=== PATIENT | female | born 1990 | race Two or more races ===

== ENCOUNTER 2025-08-03 11:14 | Emergency (ER) | payer BC, SELFPAY ==
[2025-08-03 11:38] VITALS: BP 151/107; PULSE 95; RESP 18; TEMP 36.6; O2SAT 97; BMI 40.0
--- NOTE | 2025-08-03 12:08 | EDNOTE_ITS ---
ED OB Contraction Preg RMI/HPI General Chief complaint: Vaginal Bleeding Stated complaint: VAGINAL BLEEDING, CRAMPING, PREG 10WKS Time Seen by Provider: 08/03/25 11:54 Arrival date/time: 08/03/25 11:14 RME / HPI RME / HPI Narrative: DR. SNOW MAIN ED EVALUATION: 35-year-old female, approximately 10 weeks (, both prior sections), presenting with vaginal spotting since yesterday without passage of clots. She reports mild dysuria since yesterday and this morning but denies fever, chills, abdominal pain, cramping, or back pain. No recent trauma reported. Last menstrual period was approximately June 06. , both prior sections. States the first baby?s neck was wrapped around with the umbilical cord and for the second baby she had no choice. Related Data Home Medications ?Medication ?Instructions ?Recorded ?Confirmed [id number]-jmw-It-FA 1 mg 1 tab PO QDAY 1 11/14/22 tablet Previous Rx's ?Medication ?Instructions ?Recorded nifedipine 30 mg tablet,extended 30 mg PO QDAY 30 days #30 tabs 10/13/22 release cephalexin 500 mg capsule 500 mg PO QID 5 days #20 cap s 08/03/25 Allergies Allergy/AdvReac Type Severity Reaction Status Date / Time latex Allergy Mild Redness of Verified 08/03/25 11:17 Skin Penicillins Allergy Mild Rash Verified 08/03/25 11:17 Review of Systems Review of Systems Systems Reviewed: All systems reviewed, normal except as documented Past Medical History Past Medical History CARDIAC: Positive Cardiac Disorders and Hypertension (GESTATIONAL) GENITOURINARY: Positive Genitourinary Disorders (HISTORY OF UTI'S) REPRODUCTIVE: Positive Previous Pregnancies (X1) OTHER HISTORY: Positive Hospitalization (CHILDBIRTH) and Chicken Pox ( A CHILD) Family History FAMILY HISTORY: Positive Family Respiratory Disorders (GRANDMOTHER-ASTHMA), Family Cancer (MOTHER-MULTIPLE MYLOMA) and Family Surgery (MOTHER AND GRANDMOTHER-HYSTERECTOMY) Surgical History SURGICAL: Positive Section (2020) Social History SMOKING STATUS: Never smoker SECOND HAND EXPOSURE: No SUBSTANCE USE: does not use ALCOHOL: Never ED Exam Narrative Physical exam: Constitutional: Awake, alert, nontoxic, no acute distress, overweight HEENT: Normocephalic, atraumatic, extraocular movements intact. Neck: Supple CV: Regular rate and rhythm, no murmurs/rubs/gallops Lungs: Clear to auscultation BL, no respiratory distress. Abd: Soft, NT, ND, no HSM noted to palpation Extremities: No deformities, no edema noted Skin: Warm, dry, intact Course Quality Measures none Orders Category Date Time Status US OB <= 14 weeks fetus Stat Exams 08/03/25 13:18 Completed ABO/RH Type Stat Lab 08/03/25 15:00 Completed BMP [Basic Metabolic Panel] Stat Lab 08/03/25 14:45 Completed Beta HCG,Quantitative Stat Lab 08/03/25 14:45 Completed CBC Stat Lab 08/03/25 14:54 Completed Urinalysis, C/S if Indicated Stat Lab 08/03/25 12:18 Completed Urine Culture Stat Lab 08/03/25 12:18 Received cephALEXin [Keflex] Med 08/03/25 15:51 Discontinued 500 mg PO X1 ONE Vital Signs Vital signs: Vital Signs Temperature 97.8 F 08/03/25 11:38 Pulse Rate 95 08/03/25 11:38 Respiratory Rate 18 08/03/25 11:38 Blood Pressure 151/107 H 08/03/25 11:38 Pulse Oximetry (%) 97 08/03/25 11:38 Oxygen Delivery Method Room Air 08/03/25 11:38 Vaginal Bleeding MDM Narrative MDM Narrative: I, Rabia Vazquez, am scribing for and in the presence of Dr. Snow. 1230: Nurse reported patient had an episode of blood with clots while using the restroom, not just spotting now. 1550: Patient has an intrauterine . She also has a UTI and a subchorionic hemorrhage. Will need to see OBGYN closely for repeat labs and ultrasound. Okay for discharge home. Return precautions advised. Patient data External records reviewed:: [facility] previous records Clinical information provided by:: patient Social determinants that could affect healthcare access:: none Patient has the following chronic illnesses:: Approximately 10 weeks (, both prior sections). No other PMHx reported. How is presenting disease/condition affected by chronic disease/condition?: no chronic disease Evaluation data The following diagnostics were reviewed and interpreted by me:: lab results and radiology exam(s) Lab and/or radiology exams considered but not ordered:: none Interpretation Summary: See MDM narrative above. RADIOLOGY Procedure(s): US OB <= 14 weeks fetus Accession Number(s): [id number] cc: Milad Vivas; Aiden Huggins MD; Leslie Snow MD~ Examination: Complete OB ultrasound, less than 14 weeks, transabdominal Date and time of exam: August 03, 2025, 1520 hours INDICATIONS: Severe vaginal bleeding with clots today Technique: Obstetrical ultrasound images less than 14 weeks performed via transabdominal imaging Findings: A normal shaped single intrauterine gestation is present in the uterus. CRL 1.9 cm corresponds to 8 weeks 3 days gestational age Subchorionic hemorrhage 25 x 22 x 25 mm Cardiac motion 166 bpm Ultrasonographic survey of visible structures unremarkable. Amniotic fluid volume appears appropriate for this estimated gestational age. Right ovary 3.5 cm arterial flow Left ovary obscured by bowel gas IMPRESSION: Viable intrauterine gestation 8 weeks 3 days Recommend short-term follow-up transvaginal study given the subchorionic hemorrhage Dictated By: Aiden Huggins MD Medications / Prescriptions Medications or Prescriptions considered but not ordered:: none Medication administrations:: Medication Administration History Discontinued Medications Cephalexin HCl (Cephalexin 250 Mg Capsule) 500 mg PO X1 ONE Stop: 08/03/25 15:52 Last Admin: 08/03/25 16:21 Dose: 500 mg Documented By: DB see above if any Consultations Consultation(s) initiated? (list below): No Diagnosis Vaginal Bleeding Differential Diagnosis: other (Threatened , UTI, implantation bleeding, cervicitis.) Most likely diagnosis given after review of the tests above:: UTI Subchorionic hemorrhage Admission Indicated Admission indicated?: not indicated Admission Request Was there a request for admission?: No Disposition Plan Disposition Plan: Discharge Discharge Attestation Discharge Attestation: The patient and all family members were given an opportunity to ask questions and understood the discharge instructions. Discharge instructions specifically effects, indications for sooner follow up or return to the emergency department, and the expected course of current diagnosis. Patient condition: Stable Discharge Plan Plan Patient Disposition: HOME (Self Care) Patient condition on transfer: Stable Prescriptions/Referrals Prescriptions/Med Rec: New cephalexin 500 mg capsule 500 mg PO QID 5 Days Qty: 20 0RF No Action rcaaqxce-amw-Hv-FA 1 mg Tablet 1 tab PO QDAY nifedipine 30 mg tablet extended release 30 mg PO QDAY 30 Days Qty: 30 1RF Rx Instructions: Take at 8PM Referrals: Milad Vivas FNP [Primary Care Provider] - In 1 week Problem List Clinical Impression: UTI (urinary tract infection), Subchorionic hemorrhage Patient/Caregiver Discharge Instructions Education Materials: Urinary Tract Infections in Women, Bleeding During Early Additional Instructions: Some general health principles that can help you are the NEW START principles: Nutrition (eat a plant-based diet, avoiding meats in general, avoiding highly processed foods) Exercise (Daily exercise/walks as tolerated) Water (Drink adequate fresh water to maintain hydration, concentrating on water rather than on soda, coffee, tea, juice, etc for hydration) [place] (Spend time - 15-20 minutes or so with skin exposed in the surface supervisor and late evening sun for Vitamin D health benefits) [place] (Avoid alcohol, illicit drugs, caffeinated beverages, smoking, etc) Air (Deep breathing exercises in the early mornings in fresh air) Rest (Adequate rest at night, going to bed a few hours before midnight and avoiding all screens/television/loud music in the time right before going to bed, also avoiding heavy meals just prior to going to bed) Trust in God (Spend time daily in Bible study and prayer - health benefits in contemplation of God's true character) Additional resources that can benefit: www.[email or web address], look under resources and seminars. Another good website is www.[employer].org Print Language: Latvian Stand Alone Forms: Valery Award Info., Work/School Release, Patient Portal Info Letter
[2025-08-03 12:25] LABS: Collection Type, Urine Clean Catch
[2025-08-03 12:56] LABS: Bacteria,Urine Rare; Bilirubin,Urine Negative (Negative); Blood,Urine 3+ (Negative); Glucose, Urine Negative (Negative); Ketones,Urine Negative (Negative); Leukocyte Esterase,Urine Positive (Negative); Nitrite,Urine Negative (Negative); PH,Urine 6.5 (5.0-7.0); Protein,Urine 2+ (Neg - Trace); RBC,Urine 111 /hpf (0-3); Specific Gravity,Urine 1.007 (1.001-1.035); Squamous Epithelial Cell,Urine 4 /hpf (0-5); Urobilinogen,Urine Negative mg/dL (0.0-1.0); WBC,Urine 250 /hpf (0-5)
[2025-08-03 12:58] LABS: Clarity,Urine Bloody (Clear/Hazy); Color,Urine Red (Lt Yel-Yel); Culture Indicated,Urine Yes
--- NOTE | 2025-08-03 13:18 | XR_ITS ---
Examination: Complete OB ultrasound, less than 14 weeks, transabdominal Date and time of exam: August 03, 2025, 1520 hours INDICATIONS: Severe vaginal bleeding with clots today Technique: Obstetrical ultrasound images less than 14 weeks performed via transabdominal imaging Findings: A normal shaped single intrauterine gestation is present in the uterus. CRL 1.9 cm corresponds to 8 weeks 3 days gestational age Subchorionic hemorrhage 25 x 22 x 25 mm Cardiac motion 166 bpm Ultrasonographic survey of visible structures unremarkable. Amniotic fluid volume appears appropriate for this estimated gestational age. Right ovary 3.5 cm arterial flow Left ovary obscured by bowel gas IMPRESSION: Viable intrauterine gestation 8 weeks 3 days Recommend short-term follow-up transvaginal study given the subchorionic hemorrhage
[2025-08-03 15:15] LABS: Basophils # (Auto) 0.0 Thou/mm3 (0.0-0.2); Basophils % (Auto) 0 % (0-2.5); Eosinophils # (Auto) 0.0 Thou/mm3 (0.0-0.5); Eosinophils % (Auto) 0 % (0-10); Hematocrit 43.5 % (36.0-46.0); Hemoglobin 14.9 g/dL (12.0-16.0); Immature Granulocytes Auto 0.04 Thou/mm3 (0.00-0.00); Lymphocytes # (Auto) 1.8 Thou/mm3 (1.0-4.8); Lymphocytes % (Auto) 16 % (10-50); Mean Corpuscular HGB Conc 34.3 g/dl (31.0-37.0); Mean Corpuscular Hemoglobin 30.0 pg (25.0-35.0); Mean Corpuscular Volume 88 fL (80-100); Monocytes # (Auto) 0.5 Thou/mm3 (0.0-0.8); Monocytes % (Auto) 4 % (0-12); Neutrophils # (Auto) 9.2 Thou/mm3 (1.8-7.7); Neutrophils % (Auto) 79 % (37-80); Nucleated Red Blood Cell # 0.00 Thou/mm3 (0.00-0.00); Nucleated Red Blood Cell % 0 /100 WBC (0); Platelet Count 194 Thou/mm3 (140-440); RDW Standard Deviation 41.5 fL (36.4-46.3); Red Blood Count 4.97 Miln/mm3 (4.00-5.20); White Blood Count 11.6 Thou/mm3 (3.6-11.0)
[2025-08-03 15:31] LABS: Anion Gap 15 (7-16); BUN/Creatinine Ratio 11 Ratio (12-20); Blood Urea Nitrogen 8 mg/dL (9-23); Calcium 10.0 mg/dL (8.3-10.6); Carbon Dioxide 18.7 mMol/L (20.0-31.0); Chloride 105 mMol/L (98-107); Creatinine (Component) 0.7 mg/dL (0.6-1.3); Estimated Creatinine Clearance 144.0 mL/min (>60); Glucose 87 mg/dL (74-106); Osmolality,Calculated 274 (275-295); Potassium 4.4 mMol/L (3.4-5.1); Sodium 139 mMol/L (136-145); eGFR > 60 See Note
[2025-08-03 15:53] VITALS: BP 166/90; PULSE 78; RESP 16; TEMP 36.8; O2SAT 100
[2025-08-03 17:19] VITALS: BP 139/96; PULSE 76; RESP 16; O2SAT 98
== END 2025-08-03 17:20 | disposition home or self-care (01) ==
PROVIDERS: Emergency Provider Family Medicine; PCP Nurse Practitioner Family
DX: O23.41 Unspecified infection of urinary tract in pregnancy, first trimester (principal); O20.8 Other hemorrhage in early pregnancy; Z3A.10 10 weeks gestation of pregnancy
CPT/HCPCS: 36415; 76801; 80048; 81001; 84702; 85025; 86900; 86901; 87086; 99283; A9270

== ENCOUNTER 2025-08-11 10:19 | Outpatient (AMB) | payer BC, SELFPAY ==
[2025-08-11 10:41] VITALS: BP 120/86; PULSE 82; RESP 17; TEMP 36.6; O2SAT 99; BMI 41.2
--- NOTE | 2025-08-11 10:41 | AMB.GYNCLNOT ---
Vital Signs 08/11/25 10:41 Height 1.63 m Height Method Stated Weight 109.032 kg Weight Measurement Method Standing Scale BMI 41.2 BP 120/86 H Blood Pressure Source Automatic Cuff Blood Pressure Location Right Upper Arm Position Sitting Respiration 17 Pulse 82 Pulse Source Monitor Temp 97.8 F Temp Source Temporal Artery Scan Pulse Oximetry (%) 99 Oxygen Delivery Method Room Air Allergies/Home Meds Allergies & Medications Allergies latex Allergy (Mild, Verified 08/11/25 10:43) Redness of Skin Penicillins Allergy (Mild, Verified 08/11/25 10:43) Rash Intake Visit Data Collection New Patient or Established: Established Patient (seen at [facility] within 3 years) Reason for Visit:: ER FOLLOW UP Seen by Clinical Staff ONLY (RN/MA): No Unloader Required: No Do You Feel Safe at Home: Yes Authorities Contacted: N/A PCP or OBGYN visit in last 3 months: No Hx Now: Yes Are you currently on any form of Control: No Last menstrual period: 06/01/25 Pain Present Currently: No Pain Scale Used: Cee-Oscar/Numerical Pain scale:: 0 Smoking Status Smoking Status: Never smoker Immunizations Flu Vaccine in the Last 12 Months: No 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 regularity: regular Flow: normal Monthly: Yes How many days does period last: 4 Age at menarche: 12 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 1. Little interest or pleasure in doing things: not at all 2. Feeling down, depressed, or hopeless: not at all Total score: 0 PHQ-9 3. Trouble falling or staying asleep, or sleeping too much: Not at all 4. Feeling tired or having little energy: Not at all 5. Poor appetite or overeating: Not at all 6. Feeling bad about yourself - or that you are a failure or have let yourself or your family down: Not at all 7. Trouble concentrating on things, such as reading the newspaper or watching television: Not at all 8. Moving or speaking so slowly that other people could have noticed? - Or the opposite - being so fidgety or restless that you have been moving around a lot more than usual: not at all 9. Thoughts that you would be better off or of hurting yourself in some way: Not at all Total score: 0 If you checked off any problems, how difficult have these problems made it for you to do your work, take care of things at home, or get along with other people?: not difficult at all Source: Developed by Drs. Koby Davidson, Zuleyma Burleson, Kevin Mckeon and colleagues, with an educational moris from [employer]. Depression screen completed yes Social History Living Situation History Marital Status: Lives With: Family Housing: House Tobacco History Smoking Status: Never smoker Second Hand Smoke Exposure: No Alcohol History Alcohol Intake: Never Domestic Abuse History Do You Feel Safe at Home: Yes History of Present Illness HPI Narrative 35 years old 3 para 2, LMP of 06/01/2025, was in emergency room with vaginal bleeding on 08/03/2025 She was diagnosed with threatened with subchorionic hemorrhage ER follow-up today Works in [employer] light duty sedentary work No active bleeding now Looks comfortable Has OB initial scheduled for 08/20/2025 Patient advised to continue same today's bedside ultrasound shows intrauterine , with a fetus, I can visualize a beating heart Exam Narrative Physical exam: Alert and oriented x 3 no shortness of breath Pain no chest pain no palpitations Chest clear bilaterally no additional sounds, no wheezing no rales CVS regular rate and rhythm No CVAT Abdomen nontender, normal bowel sounds No guarding no rigidity No hernias bedside US seen an IUP at 9 weeks with a FHR positive , not heard by Doppler but can see it visually patients bleeding is none active now Results Objective Imaging: [facility] [address] [place] [address] [place] Imaging Report Signed Patient: ZULEMA ZELAYA Med. Record#: [id number] Birthdate: 1990 Age/Sex: 35 / F Location: [facility] Attending Dr: Ordering Physician: Leslie Eli MD Date of Service: 08/03/25 Procedure(s): US OB <= 14 weeks fetus Accession Number(s): [id number] cc: Milad Vivas; Aiden Huggins MD; Leslie Eli MD~ Examination: Complete OB ultrasound, less than 14 weeks, transabdominal Date and time of exam: August 03, 2025, 1520 hours INDICATIONS: Severe vaginal bleeding with clots today Technique: Obstetrical ultrasound images less than 14 weeks performed via transabdominal imaging Findings: A normal shaped single intrauterine gestation is present in the uterus. CRL 1.9 cm corresponds to 8 weeks 3 days gestational age Subchorionic hemorrhage 25 x 22 x 25 mm Cardiac motion 166 bpm Ultrasonographic survey of visible structures unremarkable. Amniotic fluid volume appears appropriate for this estimated gestational age. Right ovary 3.5 cm arterial flow Left ovary obscured by bowel gas IMPRESSION: Viable intrauterine gestation 8 weeks 3 days Recommend short-term follow-up transvaginal study given the subchorionic hemorrhage Dictated By: Aiden Huggins MD Signed By: <Electronically signed by Aiden Huggins MD in OV> 08/03/25 142 DD/ 142 TD/TT: 08/03/251423 Agency Legal Counsel: TW Office Procedures [facility] LOC & Office Proc's Nursing/Assessment Patient Status: Established Patient OB Clinic Nursing Assessment: Medication Reconciliation, Update PMH in EMR and Vital Signs OB Clinic Coordination of Care: Complex Care and Chronic Disease 1-5, Education Complex Pt/Fam, Consent,records obtained, informed consent, Lab and Imaging orders, Results/Orders obtained and Staff clarify orders Established Patient Charge Established Patient Point Assignment: 110 Established Patient Point Charge: EP Level 3 (80-115) Assessment & Plan Additional Assessment threatened miscarriage in first trimester High risk previous c section / subchorionic bleed / active bleeding stopped now pelvic rest Additional Plan has initial Ob scheduled for 08/20/2025 Follow Up: 9 Days
== END 2025-08-11 11:34 | disposition home or self-care (01) ==
LOC: HODSOBC 10:19
PROVIDERS: Supervising Provider Obstetrics & Gynecology; Visit Provider Obstetrics & Gynecology
DX: O20.0 Threatened abortion (principal); O34.219 Maternal care for unspecified type scar from previous cesarean delivery; Z3A.09 9 weeks gestation of pregnancy; Z91.040 Latex allergy status; Z88.0 Allergy status to penicillin
CPT/HCPCS: 99213; G0463

== ENCOUNTER 2025-08-20 08:16 | Outpatient (AMB) | payer BC, SELFPAY ==
[2025-08-20 08:33] VITALS: BP 126/84; PULSE 81; RESP 16; TEMP 36.5; O2SAT 98; BMI 41.5
--- NOTE | 2025-08-20 08:33 | OBCLNT_ITS ---
Vital Signs 08/20/25 08:33 Height 1.63 m Height Method Stated Weight 110.336 kg Weight Measurement Method Standing Scale BMI 41.5 BP 126/84 Blood Pressure Source Automatic Cuff Blood Pressure Location Left Upper Arm Position Sitting Respiration 16 Pulse 81 Pulse Source Monitor Temp 97.7 F Temp Source Oral Pulse Oximetry (%) 98 Oxygen Delivery Method Room Air Allergies/Home Meds Allergies & Medications Allergies latex Allergy (Mild, Verified 08/20/25 08:34) Redness of Skin Penicillins Allergy (Mild, Verified 08/20/25 08:34) Rash Medication Reconciliation No Known Home Medications 08/20/25 [History Confirmed 08/20/25] Intake Visit Data Collection New Patient or Established: Established Patient (seen at [facility] within 3 years) Reason for Visit:: INITIAL CARE Seen by Clinical Staff ONLY (RN/MA): No Netsuite Consultant Required: No Do You Feel Safe at Home: Yes Authorities Contacted: N/A PCP or OBGYN visit in last 3 months: Yes Hx Now: Yes Are you currently on any form of Control: No Last menstrual period: 06/01/25 Pain Present Currently: No Pain Scale Used: Cee-Oscar/Numerical Pain scale:: 0 Smoking Status Smoking Status: Never smoker Immunizations Flu Vaccine in the Last 12 Months: No Flu Vaccine Exclusion Criteria: Refused by Patient Questionnaires Covid-19 Vaccine Questionnaire Has patient been vacinated for Covid-19 Have you been vacinated for Covid-19: No PHQ-9 PHQ-2 Over the last 2 weeks, how often have you been bothered by any of the following problems? 1. Little interest or pleasure in doing things: not at all 2. Feeling down, depressed, or hopeless: not at all Total score: 0 PHQ-9 3. Trouble falling or staying asleep, or sleeping too much: Not at all 4. Feeling tired or having little energy: Not at all 5. Poor appetite or overeating: Not at all 6. Feeling bad about yourself - or that you are a failure or have let yourself or your family down: Not at all 7. Trouble concentrating on things, such as reading the newspaper or watching television: Not at all 8. Moving or speaking so slowly that other people could have noticed? - Or the opposite - being so fidgety or restless that you have been moving around a lot more than usual: not at all 9. Thoughts that you would be better off or of hurting yourself in some way: Not at all Total score: 0 Source: Developed by Drs. Koby Davidson, Zuleyma Burleson, Kevin Mckeon and colleagues, with an educational moris from [employer]. Depression screen completed yes Social History Living Situation History Lives With: Family Housing: House Tobacco History Smoking Status: Never smoker Second Hand Smoke Exposure: No Alcohol History Alcohol Intake: Never Domestic Abuse History Do You Feel Safe at Home: Yes History of Present Illness HPI Narrative Initial visit Patient is a 35-year-old at 11 weeks and 3 days gestation, presenting for her initial visit. She initially reported a last menstrual period of June 01, 2025, but upon reflection corrected this to June 09, 2025, stating she remembered April exactly and counted 20 days from there. She reports getting the week after her last menstrual period. She has a history of two prior sections and reports that her first was complicated by high blood pressure, though she does not recall having blood pressure problems during her second . During this , the patient experienced an episode of bleeding and presented to the emergency department, where an ultrasound was performed and the baby was visualized. She had been seeking care from Dr. Puga, who had ordered an ultrasound, but when she called to schedule the appointment, she was told there was no order in the system. The patient had difficulty locating obstetric care after the OB department at [facility] was shut down, leaving only a couple of midwives available. 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: Past Medical History Past Medical History: No Hx Neurological Disorders, Yes Hx Cardiac Disorders, Yes Hx Hypertension, No Hx Cancer, No Hx Blood Disorders, No Hx Anemia, No Hx Gastrointestinal Disorders, No Hx Renal Disease, No Hx Diabetes Mellitus Type 1 and No Hx Diabetes Mellitus Type 2 OB Initial Visit OB Flowsheet OB Flowsheet Initial Weight: Not Recorded Date -?--?-?-?-?-?-?-?-?-?-?-?- EGA Weight BP Alb Glu CTX Pres Fundal ht FHR Mov Dilation Station Effacement Hx Notes Visit Note 08/20/25 -?-?-?-?-?-?-?-?-?-?-?-?- 11w 3d 110.336 kg 126/84 Haydee Colon, a 35-year-old at 11 weeks 3 days gestation, presented for initial visit. She has a history of two prior sections and hypertension during her first . She recently visited the emergency department for bleeding, where ultrasound confirmed viability. Current ultrasound showed heart rate of 168 bpm. Plan includes labs, genetic screening, 12-14 week ultrasound, vitamins, and starting aspirin at 15-16 weeks for hypertension prevention. Menstrual History Menstrual reliability: approximate (month known) Flow: normal Menstrual regularity: regular Monthly: Yes Age at menarche: 12 On control pills at conception: No Associated symptoms (LMP): Reports fatigue and breast tenderness OB History : 3 Para: 1 Hx # Pregnancies: 1 # of Living Children: 2 Delivery History 1st : Child's name: DUKE date: 09/19/21 sex: female Gestational age at delivery (weeks): 41 Delivery type: Delivery complications: NONE History of depression before or after : No 2nd : Child's name: MARIPOSA date: 11/14/22 sex: female Gestational age at delivery (weeks): 35 Delivery type: Delivery complications: NONE History of depression before or after : No Infection History & Risk Evaluation History of STDs: none Genetic Screening & History Genetic Screening/Teratology Counseling - Includes patient, baby's father, or anyone in either family with: 1. Patient's age 35 years or older as of estimated date of delivery: No 2. Thalassemia (Pakistani, Indian, Mediterranean, or Background); MCV less than 80: No 3. Neural Tube Defect (Meningomyelocele, Spina Bifida, or Anencephaly): No 4. Congenital Heart Defect: No 5. Down Syndrome: No 6. Ismael-Sachs (Ashkenazi Taoism, Cajun, Serbian South Korean): No 7. Dallin Disease (Ashkenazi Taoism): No 8. Familial Dysautonomia (Ashkenazi Taoism): No 9. Sickle Cell Disease or Trait (): No 10. Hemophilia or other blood disorders: No 11. Muscular Dystrophy: No 12. Cystic Fibrosis: No 13. Gilson's Chorea: No 14. Mental Retardation/Autism: No 15. Other inherited genetic or chromosomal disorder: No 16. Maternal Metabolic Disorder (EG,TYPE 1 Diabetes, PKU): No 17. Patient or baby's father had a child with defects not listed above: No 18. Recurrent loss or a stillbirth: No 19. Medications (including supplements, vitamins, herbs or otc drugs)/illicit/recreational drugs/alcohol since last menstrual period: No 20. Any other: No Infection History 1. Live with someone with TB or exposed to TB: No 2. Rash or viral illness since last menstrual period: No 3. Hepatitis B,C: No Other (see comments) Source: [employer] Review of Systems Constitutional Constitutional: Reports fatigue Endocrine Endocrine: Reports fatigue Exam General General Appearance: alert, in no apparent distress and healthy appearing Head Head exam: atraumatic Neck Neck exam: Present normal inspection and trachea midline Chest Chest inspection: Present normal inspection and symmetric chest wall rise External exam: Present normal external exam; Absent tenderness Neuro Neurological exam: Present oriented X3 Psych Psychiatric exam: Present normal affect and normal mood Office Procedures OBC Clinic LOC & Office Proc's Nursing/Assessment Patient Status: Established Patient OB Clinic Nursing Assessment: Medication Reconciliation, Update PMH in EMR and Vital Signs OB Clinic Coordination of Care: Complex Care and Chronic Disease 1-5, Consent,records obtained, informed consent, Education Simp Pt/Fam, 1 Ins Authorization, Lab and Imaging orders, Results/Orders obtained and Staff clarify orders Special Needs: Heart tones Established Patient Charge Established Patient Point Assignment: 150 Established Patient Point Charge: EP Level 4 (120-155) Assessment & Plan Diagnosis / Problem List (1) Supervision of high risk , unspecified, first trimester: Status: Acute Plan Intrauterine Assessment: Patient presents for initial visit with uncertain last menstrual period, initially reported as June 01 but corrected to June 09 during visit. Current gestational age measures 11 weeks 3 days by ultrasound. heart rate of 168 bpm is within normal range for gestational age. Patient had recent emergency department visit for bleeding with ultrasound confirming viable . This is her third with history of 2 prior deliveries. Plan: - Complete initial laboratory panel - Genetics screening including Down syndrome screening and gender determination - Schedule 12-14 week ultrasound at [facility] - Start vitamins - Begin aspirin at 15-16 weeks for hypertension prevention given history of elevated blood pressure in first History of hypertension in Assessment: Patient reports history of high blood pressure during first but not during second . Given this history, there is increased risk for recurrent hypertensive disorders in current . Plan: - Initiate aspirin prophylaxis at 15-16 weeks gestation as preventive measure for hypertension
== END 2025-08-20 09:02 | disposition home or self-care (01) ==
LOC: HODSOBC 08:16
PROVIDERS: PCP Physician Assistant; Referring Provider Physician Assistant; Supervising Provider Obstetrics & Gynecology; Visit Provider Obstetrics & Gynecology
DX: O09.291 Supervision of pregnancy with other poor reproductive or obstetric history, first trimester (principal); O34.219 Maternal care for unspecified type scar from previous cesarean delivery; Z3A.11 11 weeks gestation of pregnancy; Z87.59 Personal history of other complications of pregnancy, childbirth and the puerperium; Z91.040 Latex allergy status; Z88.0 Allergy status to penicillin
CPT/HCPCS: 99214; G0463

== ENCOUNTER 2025-09-17 09:08 | Outpatient (AMB) | payer BC, SELFPAY ==
[2025-09-17 09:41] VITALS: BP 120/85; PULSE 79; RESP 18; TEMP 36.2; O2SAT 98; BMI 41.3
--- NOTE | 2025-09-17 09:41 | OBCLNT_ITS ---
Vital Signs 09/17/25 09:41 Height 1.63 m Height Method Stated Weight 109.826 kg Weight Measurement Method Standing Scale BMI 41.3 BP 120/85 H Blood Pressure Source Automatic Cuff Blood Pressure Location Left Upper Arm Position Sitting Respiration 18 Pulse 79 Pulse Source Monitor Temp 97.2 F Temp Source Oral Pulse Oximetry (%) 98 Oxygen Delivery Method Room Air Allergies/Home Meds Allergies & Medications Allergies latex Allergy (Mild, Verified 09/17/25 09:42) Redness of Skin Penicillins Allergy (Mild, Verified 09/17/25 09:42) Rash Medication Reconciliation aspirin 81 mg tablet 81 mg PO QDAY 90 days #90 tabs 09/17/25 [Rx] metronidazole 500 mg tablet 500 mg PO Q8H 5 days #15 tabs 09/17/25 [Rx] Immunizations Immunizations Flu Vaccine in the Last 12 Months: No Flu Vaccine Exclusion Criteria: No Exclusion Criteria Care OB Visit Log OB Flowsheet Initial Weight: Not Recorded Date -?-?-?-?-?-?-?-?-?-?-?-?- EGA Weight BP Alb Glu CTX Pres Fundal ht FHR Mov Dilation Station Effacement Hx Notes Visit Note 08/20/25 -?-?-?-?-?-?-?-?-?-?-?-?- 11w 3d 110.336 kg 126/84 Haydee Colon, a 35-year-old at 11 weeks 3 days gestation, presented for initial visit. She has a history of two prior sections and hypertension during her first . She recently visited the emergency department for bleeding, where ultrasound confirmed viability. Current ultrasound showed heart rate of 168 bpm. Plan includes labs, genetic screening, 12-14 week ultrasound, vitamins, and starting aspirin at 15-16 weeks for hypertension prevention. 09/17/25 -?-?-?-?-?-?-?-?-?-?-?-?- 15w 3d 109.826 kg 120/85 155 active - She reports experiencing some gas- like pains in her upper abdomen. - She is currently taking fiber supple ments for this issue. - She is experiencing some vaginal disch arge with associated weakness. - She denies the discharge being foul- smelling. - She denies nausea, vomiting, or crampi ng. - She reports adherence to fiber supplementation as recommended. - Start aspirin to prevent preeclampsia - AFP blood test (one vial) for genetic screening to assess central nervous system problems - 20-week ultrasound in [place] (referra l already sent) - Bacterial vaginosis prescription avail able if needed for foul-smelling discharge - Continue fiber supplementation for 3-4 days or up to 7 days for gastrointestinal symptoms - Increase water intake for hydration - Follow up in 4 weeks AKASH Calculator Estimated Delivery Date Method Current WG Current Estimate 03/08/26 LMP (Certain) 15w 5d Notes Visit Date: 09/17/25 Last Updated by: Erasto Broussard MD - Initial screen: Hepatitis B negative, Hepatitis C negative, RPR non-reactive, Rubella immune, Blood group A-positive, Antibody screen negative, HIV negative, Gonorrhea negative, Chlamydia negative - CBC: Hemoglobin 12.2 g/dL, Hematocrit 37.7%, Platelets 247 - NIPT testing: Negative, Gender consistent with female Office Procedures OBC Clinic LOC & Office Proc's Nursing/Assessment Patient Status: Established Patient OB Clinic Nursing Assessment: Medication Reconciliation, Update PMH in EMR and Vital Signs OB Clinic Coordination of Care: Consent,records obtained, informed consent, Education Simp Pt/Fam, Lab and Imaging orders, Results/Orders obtained and Staff clarify orders Special Needs: Heart tones Established Patient Charge Established Patient Point Assignment: 110 Established Patient Point Charge: EP Level 3 (80-115) Assessment & Plan Diagnosis / Problem List (1) Acute vaginitis: Status: Acute Plan Problem List - Bacterial vaginosis Assessment 15 weeks 3 days intrauterine with reassuring heart rate of 149 bpm and movement observed on ultrasound. Patient reports vaginal discharge described as weakness, which is assessed as normal variant in the absence of foul odor. Patient experiences upper abdominal discomfort characterized as gas pains. Initial screening results are reassuring with negative hepatitis B, hepatitis C, RPR, HIV, gonorrhea and chlamydia; rubella immune status confirmed; blood type A positive with negative antibody screen. Complete blood count shows hemoglobin 12.2 g/dL, hematocrit 37.7%, and platelets 247,000. NIPT testing negative with female gender confirmed. SMA and cystic fibrosis results pending. Patient denies nausea, vomiting, or cramping. Plan - Start aspirin to prevent preeclampsia - AFP blood test (one vial) for genetic screening to assess central nervous system problems - 20-week ultrasound in [place] (referral already sent) - Bacterial vaginosis prescription available if needed for foul-smelling discharge - Continue fiber supplementation for 3-4 days or up to 7 days for gastrointestinal symptoms - Increase water intake for hydration - Follow up in 4 weeks
== END 2025-09-17 10:33 | disposition home or self-care (01) ==
LOC: HODSOBC 09:08
PROVIDERS: Supervising Provider Obstetrics & Gynecology; Visit Provider Obstetrics & Gynecology
DX: O09.892 Supervision of other high risk pregnancies, second trimester (principal); O23.592 Infection of other part of genital tract in pregnancy, second trimester; N76.0 Acute vaginitis; Z3A.15 15 weeks gestation of pregnancy; Z91.040 Latex allergy status; Z88.0 Allergy status to penicillin
CPT/HCPCS: 99213; G0463